=== PATIENT | female | born 1970 | race Caucasian/White ===

== ENCOUNTER → 2017-05-06 09:33 | Outpatient (CLI) | payer OTHER, SELFPAY ==
--- NOTE | 2017-05-06 09:40 | MRI_ITS ---
STUDY: MRI BRAIN WITH AND WITHOUT CONTRAST REASON FOR EXAM: Female, 46 years old. Syncope. Patient has history of migraine headaches. TECHNIQUE: Standardized multiplanar fat and water weighted pulse sequences were obtained. 10 ml of Gadavist contrast material was administered intravenously for the contrast portion of the examination. COMPARISON: None. FINDINGS: Normal size of the ventricles and extra-axial spaces for the patient's age. Normal white matter tracts of the supratentorial brain. There is no evidence for recent intracranial ischemia or other cause of cytotoxic edema on diffusion weighted imaging (DWI). Normal T2* images of the brain without demonstrated susceptibility artifact. There is no demonstrated hemosiderin stain. Normal bilateral basal ganglia. Normal thalami. There is no extra-axial fluid accumulation. Normal flow voids within the major intracranial circulation suggesting patency by spin echo criteria. Normal venous enhancement. There is no enhancing intra-axial or extra-axial abnormality. Normal sella turcica, pituitary gland, infundibular stalk, optic chiasm and hypothalamus. Normal tectal plate and pineal gland. Normal midbrain, violette and medulla. Normal cerebellum. Normal basal cisterns. Normal bilateral temporal bones. Normal bilateral internal auditory canals. No demonstrated orbital abnormality, within the constraints of a routine brain study. There is mucoperiosteal inflammatory disease of the paranasal sinuses consistent with mild chronic sinusitis. Normal calvarium and skull base. Normal visualized soft tissue structures. Normal visualized upper cervical spine. MRI/Brain W/WO Contrast IMPRESSION: Normal unenhanced and enhanced MRI of the brain. Electronically Signed: Fany Fan MD at 19:37 EST , Service support ,
--- NOTE | 2017-05-06 10:48 | CDU_ITS ---
Reason For Study: SYNCOPE Rt. Velocities/BP Lt. Velocities/BP Prox CCA 101.0/22.3 cm/sec. Prox CCA 120.0/24.0 cm/sec. Mid CCA 89.7/18.2 cm/sec. Mid CCA 95.6/20.5 cm/sec. Dist CCA 83.8/19.9 cm/sec. Dist CCA 84.4/17.6 cm/sec. Prox ICA 70.4/28.7 cm/sec. Prox ICA 74.5/28.7 cm/sec. Mid ICA 85.0/29.9 cm/sec. Mid ICA 75.6/28.1 cm/sec. Dist ICA 75.0/28.1 cm/sec. Dist ICA 84.4/36.9 cm/sec. Rt. ICA/CCA = .95. Lt. ICA/CCA = .88. Prox ECA 90.3/17.6 cm/sec. Prox ECA 74.5/10.6 cm/sec. Rt. Vert. 46.9/14.7 cm/sec. Lt. Vert. 56.9/19.9 cm/sec. Right Extracranial There is intimal thickening but no significant atherosclerotic plaque noted in the right common carotid artery. There is intimal thickening but no significant atherosclerotic plaque noted in the right internal carotid artery. There is intimal thickening but no significant atherosclerotic plaque noted in the right external carotid artery. Antegrade flow is noted in the right vertebral artery. Left Extracranial There is intimal thickening but no significant atherosclerotic plaque noted in the left common carotid artery. There is no significant atherosclerotic plaque noted in the left internal carotid artery. There is no significant atherosclerotic plaque noted in the left external carotid artery. Antegrade flow is noted in the left vertebral artery. Procedure Carotid Duplex 17499. Exam performed in department. Interpretation Summary No significant atherosclerotic plaque or stenosis noted in the internal carotid arteries bilaterally. Flow within the vertebral arteries is antegrade bilaterally. Ordering Physician: Kendell Allen Referring Physician: Kendell Allen Performed By: India Bai RVT
== END ==
PROVIDERS: Visit Provider Psychiatry & Neurology Neurology
DX: R55 Syncope and collapse (principal)
CPT/HCPCS: 70553; 93880; A9585

== ENCOUNTER 2017-10-15 08:43 | Day surgery (SDC) | payer OTHER, SELFPAY ==
[2017-10-15 09:32] VITALS: BP 132/75; PULSE 65; RESP 14; TEMP 36.5; O2SAT 97; BMI 29.5
[2017-10-15] MEDS: Oxymetazoline 0.05% 1 SPRAY SPRAY.BTL 15 SPRAY (11:09)
[2017-10-15] MEDS: Lidocaine 4% 50 ML Bottle (11:10)
--- NOTE | 2017-10-15 11:34 | PCM.OPRPT ---
Problem List (1) Nasal septal perforation Status: Chronic Report of Operation Date of Procedure: 10/15/17 Pre-Operative Diagnosis: Nasal septal perforation Post-Operative Diagnosis: same Surgery/Procedure Performed:: Placement of nasal septal button Description of Surgical Findings:: Carol is a 46-year-old female presents for evaluation of large nasal septal perforation complicated by extensive crusting, nasal obstruction, and epistaxis. Given these complaints placement of a nasal septal button was offered and she was eager to proceed. The risks, alternatives, potential benefits, and complications were discussed at length and any questions answered to the patient and/or caregiver's satisfaction. Witnessed informed consent was obtained in the office, and the patient and/or caregiver was agreeable to proceed. Procedure went as follows: The patient was identified in the preoperative holding brought to the operating room where pledgets soaked in a 50-50 mixture of oxymetazoline and 4% topical lidocaine were placed decongest and topicalized the nasal mucosa. Examination showed a large nasal septal perforation in the anterior aspect. A temporary paper sizer was then cut from the surgical drape and when appropriate size was determined the Silastic nasal septal button was then contoured to ensure good coverage of the perforation. This was then inserted abridging the nasal septal perforation. This was reported to be very comfortable on the left but tight on the right and there was noted to be some stenosis of the nasal valve on that side and the Silastic splint was then trimmed to avoid excess pressure points. This resulted in improved comfort and the patient was then returned to the recovery area having tolerated procedure well. Type of Anesthesia:: Local Anesthesiologist: none Special Medications: none Specimen's removed: none Drains: none Estimated Blood Loss (mL): 0 mL Fluids Replaced: 0 mL Grafts/Implants Used: Silastic nasal septal button - Complications none - Admit VTE Documentation VTE Present on Admission: No VTE Pharm Prophylaxis ordered?: No Reason prophylaxis not ordered:: Procedure Not Indicated
--- NOTE | 2017-10-15 11:40 | DCINST_ITS ---
- Discharge Diagnoses Current Active Problems: Current Active and Chronic Problems Nasal septal perforation (Chronic) You will use the following diet at home:: No restrictions, Regular Discharge Activity: Return to Normal Activity, No Restrictions Call your doctor if your incision/area has: Sudden Increased Bleeding Call your doctor if you observe: Uncontrolled pain Allergies/Adverse Reactions: Allergies latex Allergy (Verified 10/15/17 09:23) Swelling gabapentin Adverse Reaction (Verified 10/15/17 09:27) HALLUCINATIONS hydroxyzine [From Atarax] Adverse Reaction (Verified 10/15/17 09:23) SUICIDAL IDEATIONS Sulfa (Sulfonamide Antibiotics) Adverse Reaction (Verified 10/15/17 09:23) Itching Medications to take at Discharge Calcium Carbonate [Calcium] 500 mg PO DAILY 10/15/17 Multivitamin,Therapeutic [Thera] 1 each PO DAILY 10/15/17 Prasterone (Dhea) [Dhea 25] 25 mg PO DAILY 10/15/17 RX: Magnesium 60 mg PO DAILY 10/15/17 RX: Progesterone,Micronized [Prometrium] 300 mg PO DAILY 10/15/17 Testosterone [Androgel] 75 gm TD 10/15/17 Primary Care Physician: Care Physician,No Primary [Primary Care Provider] - Test Results: Test results from this visit will be discussed in further detail at your follow- up appointment, if applicable. Please Follow Up With: Vel Morataya MD When: 2 weeks
[2017-10-15 11:44] VITALS: BP 132/75; BP 144/81; PULSE 70; RESP 18; TEMP 36.6; O2SAT 98
[2017-10-15] MEDS: Acetaminophen 325 MG Tablet 650 MG PO (11:49)
== END 2017-10-15 12:22 | disposition home or self-care (01) ==
LOC: SDC 08:44 → AC 08:47
PROVIDERS: Visit Provider Otolaryngology
PROC: (CPT 30520; principal; 2017-10-15 09:55)
DX: J34.89 Other specified disorders of nose and nasal sinuses (principal); J45.909 Unspecified asthma, uncomplicated
CPT/HCPCS: 30220; J7120